=== PATIENT | female | born 1955 | race African-American/Black ===

== ENCOUNTER 2018-09-12 08:46 | Inpatient (IN) | payer OTHER ==
[2018-09-08 12:28] VITALS: BMI 31.0
[2018-09-12] MEDS ORDERED: SODIUM CHLORIDE 0.9% P/F 10 ML VIAL IJ ONE ×2 (10:17→10:42)
[2018-09-12] MEDS ORDERED: BUPIVACAINE LIPOSOME/PF (EXPAREL) 266 MG/20 ML VIAL ONE (10:17)
[2018-09-12] MEDS ORDERED: MIDAZOLAM HCL 2 MG/2 ML SINGLE DOSE VIAL ONE (10:17)
[2018-09-12] MEDS ORDERED: EPINEPHrine 1:1,000 1 MG/1 ML - 30ML VIAL (INJECTION) ONE (10:42)
[2018-09-12] MEDS ORDERED: BENZOIN/ALOE VERA/STORAX/TOLU 58 ML BOTTLE ONE (10:42)
[2018-09-12] MEDS ORDERED: KETOROLAC TROMETHAMINE 60 MG/2 ML VIAL ONE (10:42)
[2018-09-12] MEDS ORDERED: BUPIVACAINE HCL/PF 2.5 MG/ML - 30 ML VIAL IJ ONE (10:42)
[2018-09-12] MEDS ORDERED: MORPHINE SULFATE 10 MG/1 ML *VIAL ONE (11:18)
[2018-09-12] MEDS ORDERED: TRANEXAMIC ACID 1000 MG/10 ML VIAL IVPUSH ONE (11:42)
[2018-09-12] MEDS ORDERED: ROPIVICAINE 0.2%/MORPH PF/KETOROLAC - 51ML DISP.SYRINGE IA ONE (11:42)
[2018-09-12] MEDS ORDERED: CEFAZOLIN 2 GM in DEXTROSE 5%-WATER - 50 ML IVPB ONE (11:42)
[2018-09-12] MEDS ORDERED: VANCOMYCIN 1,000 MG in DEXTROSE 5%-WATER - 250 ML IVPB ONE (11:42)
--- NOTE | 2018-09-12 11:44 | PN ---
Progress Note (short form) - Note Progress Note: 63F s/p RIGHT total knee replacement POD #0. -Pain control: per anaesthesia team. -DVT PPx: -Chemical: ASA 81mg PO BID x 6 weeks. -Mechanical: BEN's, SCD's. -Incentive spirometry q15 min. -PT/OT/Rehab, OOB. -WBAT RLE; full range of motion right knee. -Post-op Ancef x 3 doses. -f/u post-op TOV: 8 hours max. -f/u AM labs. -f/u drain output. -Diet as tolerated. -Care per medical hospitalist: Dr. Saeed. -Discharge planning: f/u [facility] [place] Office 09/18/2018; call for appointment . -Will follow. Xaing Jefferson MD (Orthopaedic Surgery).
--- NOTE | 2018-09-12 11:46 | OP ---
Operative Note - Note: Operative Date: 09/12/18 Pre-Operative Diagnosis: Right knee DJD Operation: Right TKA Implants: [employer]. Femur - 4. Tibia - 4. Poly - 13mm, TS. Patella - 27mm, symmetric Post-Operative Diagnosis: Same as Pre-op Surgeon: Xiang Jefferson [employer] Site Monitor: Harris Jefferson Anesthesiologist/SUPERVISOR M[employer] HOUSE: Neal Mcadams Anesthesia: Spinal Specimens Removed: Bone, soft tissue Estimated Blood Loss (mls): 0 Drains & Tubes with Location: 1 x deep HemoVac Fluid Volume Replaced (mls): 900 (Crystalloid) Operative Report Dictated: Yes
[2018-09-12] MEDS ORDERED: ePHEDrine SULFATE 50 MG/1 ML AMPULE ONE (12:19)
[2018-09-12] MEDS ORDERED: PROPOFOL 20 ML ONE ×3 (12:19)
[2018-09-12] MEDS ORDERED: VANCOMYCIN 1,000 MG VIAL (RESTRICTED TO ID ONLY) ONE (12:27)
[2018-09-12] MEDS ORDERED: ONDANSETRON 4 MG/2 ML VIAL ONE (12:27)
[2018-09-12] MEDS ORDERED: TRANEXAMIC ACID 1000 MG/10 ML VIAL ONE (12:27)
[2018-09-12] MEDS ORDERED: ceFAZolin SODIUM 1 GM VIAL ONE (12:27)
[2018-09-12] MEDS ORDERED: DEXAMETHASONE SOD PHOSPHATE 4 MG/1 ML VIAL ONE (12:27)
[2018-09-12] MEDS ORDERED: MAGNESIUM HYDROX 2400MG/30ML ORAL SUSPENSION 30 ML CUP PO PRN (15:19)
[2018-09-12] MEDS ORDERED: ONDANSETRON 4 MG/2 ML VIAL IVPUSH PRN (15:19)
[2018-09-12] MEDS ORDERED: MAG HYDROX/AL HYDROX/SIMETH 30 ML UNIT-DOSE CUP PO PRN (15:19)
[2018-09-12] MEDS ORDERED: oxyCODONE HCL 5 MG TABLET PO PRN (15:25)
[2018-09-12] MEDS ORDERED: LACTATED RINGERS SOLUTION 1,000 ML IV SCH (15:30)
[2018-09-12] MEDS: ACETAMINOPHEN 325 MG TABLET (FP) PO SCH ×2 (16:10→21:37)
--- NOTE | 2018-09-12 17:28 | HP ---
Admitting History and Physical - Admission Chief Complaint: right knee pain. denies chest pain, palpitations, nausea, vomiting, diarrhea History Source: Patient Limitations to Obtaining History: No Limitations - Advance Directives Advance Directives: Yes: Health Care Proxy - Smoking History Smoking history: Former smoker Have you smoked in the past 12 months: No If you are a former smoker, when did you quit?: OVER 10 YEARS AGO - Alcohol/Substance Use Hx Alcohol Use: Yes (OCCASIONALLY) Home Medications - Allergies Allergies/Adverse Reactions: Allergies Allergy/AdvReac Type Severity Reaction Status Date / Time No Known Allergies Allergy Verified 09/08/18 12:16 - Home Medications Home Medications: Ambulatory Orders Acetaminophen W/ Codeine #3 [Tylenol # 3 -] 1 tab PO Q4H PRN 09/08/18 Methadone HCl 50 mg PO DAILY 09/08/18 Review of Systems - Review of Systems Constitutional: reports: No Symptoms Eyes: reports: No Symptoms HENT: reports: No Symptoms Neck: reports: No Symptoms Cardiovascular: reports: No Symptoms Respiratory: reports: No Symptoms Gastrointestinal: reports: No Symptoms Genitourinary: reports: No Symptoms Breasts: reports: No Symptoms Reported Musculoskeletal: reports: Joint Pain Integumentary: reports: No Symptoms Neurological: reports: No Symptoms Endocrine: reports: No Symptoms Hematology/Lymphatic: reports: No Symptoms Psychiatric: reports: No Symptoms Pain Intensity: 7 Physical Examination Vital Signs: Vital Signs Temperature 98.3 F 09/12/18 17:00 Pulse Rate 74 09/12/18 17:00 Respiratory Rate 16 09/12/18 17:00 Blood Pressure 112/71 09/12/18 17:00 O2 Sat by Pulse Oximetry (%) 97 09/12/18 17:00 Constitutional: Yes: Well Nourished Eyes: Yes: WNL HENT: Yes: WNL Neck: Yes: WNL Cardiovascular: Yes: WNL Respiratory: Yes: WNL Gastrointestinal: Yes: WNL Renal/: Yes: WNL Musculoskeletal: Yes: Joint Stiffness Extremities: Yes: WNL Edema: No Peripheral Pulses WNL: Yes Integumentary: Yes: WNL Wound/Incision: Yes: Clean/Dry, Well Approximated Neurological: Yes: WNL ...Motor Strength: WNL Psychiatric: Yes: WNL Assessment/Plan -63F s/p RIGHT total knee replacement POD #0. cont pain management. incentive spirometry. side effects of pain meds discussed. opioids started to avoid opioid induced constipation. -GI, DVT prophylaxis. on aspirin, BEN's, SCD's. -ID: empirically covered with Ancef bj-operatively. -oral diet -assessment and plan discussed with pt, medical staff and family at bedside. hopefully will DC within 48 hours.
[2018-09-12] MEDS: oxyCODONE HCL 5 MG TABLET PO PRN (19:43)
[2018-09-12] MEDS: ASPIRIN COATED 81 MG TABLET.EC PO SCH (21:33)
[2018-09-12] MEDS: CEFAZOLIN 1 GM/D5W 1 GM/50 ML BAG IVPB SCH (21:33)
[2018-09-12] MEDS: SENNOSIDES/DOCUSATE COMBO (SENNA PLUS) TABLET (UD) PO SCH (21:33)
[2018-09-12] MEDS: oxyCODONE HCL 10 MG SUSTAINED ACTING TABLET PO SCH (21:33)
[2018-09-13] MEDS: CEFAZOLIN 1 GM/D5W 1 GM/50 ML BAG IVPB SCH (01:07)
[2018-09-13] MEDS: ACETAMINOPHEN 325 MG TABLET (FP) PO SCH ×4 (03:12→21:13)
[2018-09-13] MEDS: oxyCODONE HCL 5 MG TABLET PO PRN ×2 (06:26→20:00)
[2018-09-13 08:28] LABS: HEMATOCRIT 36.1 % (32.4-45.2); MCHC 33.3 g/dl (32.0-36.0); MEAN CELL VOLUME 84.2 fl (80-96); MEAN PLT VOLUME 8.8 fl (7.5-11.1); PLATELET COUNT 189 K/MM3 (134-434); RBC 4.29 M/mm3 (3.60-5.2); RDW 14.3 % (11.6-15.6); WHITE BLOOD COUNT 12.7 K/mm3 (4.0-10.8)
[2018-09-13 08:38] LABS: CREATININE 0.6 mg/dl (0.55-1.3); POTASSIUM 4.5 mmol/L (3.5-5.1)
[2018-09-13] MEDS ORDERED: METHADONE HCL 10 MG TABLET PO SCH (10:00)
[2018-09-13] MEDS: SENNOSIDES/DOCUSATE COMBO (SENNA PLUS) TABLET (UD) PO SCH ×2 (10:16→21:13)
[2018-09-13] MEDS: ASPIRIN COATED 81 MG TABLET.EC PO SCH ×2 (10:16→21:13)
[2018-09-13] MEDS: PANTOPRAZOLE 40 MG TABLET (FP) PO SCH (10:16)
[2018-09-13] MEDS: oxyCODONE HCL 10 MG SUSTAINED ACTING TABLET PO SCH ×2 (10:16→21:13)
--- NOTE | 2018-09-13 10:35 | OP ---
DATE OF OPERATION: DATE OF DICTATION: 09/12/2018 SURGEON: Xiang Jefferson MD FOOTWEAR FACTORY WORKER: Harris Jefferson MD, MADAI Flowers PREOPERATIVE DIAGNOSIS: Tricompartmental osteoarthritis, right knee. POSTOPERATIVE DIAGNOSIS: Tricompartmental osteoarthritis, right knee. OPERATION PERFORMED: Right posterior stabilized total knee arthroplasty ([facility] [facility]). ANESTHESIA: Peripheral block, conscious sedation, spinal anesthesia. OPERATION DETAILS: Patient correctly identified. Brought to the operating room. The right lower extremity was prepped and draped in the routine manner with Betadine scrub solution, wiped off with alcohol, and DuraPrep applied. Time-out was called. Imaging was available for intraoperative evaluation. With the patient in supine position after appropriate free draping and appropriate cleansing of the skin with Betadine solution and DuraPrep, the skin was opened. Midline incision was utilized. The incision was from 3 fingers above the superior pole of the patella to just below the tibial tubercle. The quadriceps mechanism and fascia were identified. The of the vastus medialis was lifted off the muscle with sharp dissection, and the entire muscle was freed off the intramuscular septum and linea aspera by dissecting right around the medial side freeing the muscle directly off the intramuscular septum and bone itself. This gave easy access to the subvastus plane. A blunt Holmann was placed in this area. The suprapatellar pouch was readily identified and transected using the Capellan scissors. The entire supracondylar soft tissue anterior mantle was removed using Bovie. The knee was flexed, which revealed the presence of severe tricompartmental osteoarthritis. Using the appropriate jig systems of [employer], the tibia was cut to neutral to receive a size 4 tibial tray. This was appropriately measured. The femur was measured, also sized appropriately. Deficient femoral condyle reinsured that the jig was as accurately positioned as possible using Morrison alignment of the trochlear groove to seek the actual femoral compartment appropriately. This enabled the appropriate bone cuts to be made, and the femoral components seated well. The knee was in fixed varus and fixed flexion, so the actual femoral cut was 4 degrees of valgus. A 10-mm bony resection, that is +2 mm proximalization of the joint line, performed. The flexion and extension gaps were even at 13 mm. This because of the actual stretching of the lateral collateral ligament. Once this had been completed and the patella cut was made, which was from patella ligament to quadriceps tendon, free hand cut and the appropriate jig applied for the 3 lug holes, which were drilled appropriately. Once all bony cuts had been completed, the bone bed itself was thoroughly lavaged with saline and pulse lavaged. The cementing was all in 1 stage. The exact sized components as outlined before, namely a size 4 tibial, size 4 femur, 3-cm patellar button. Tracking and patella alignment was excellent. Limb alignment was restored to neutral, that is the mechanical axis, once again. The knee was placed through a range of motion from flexion, extension. Once all extraneous cement had been removed and the tissues were thoroughly lavaged, the wounds were closed with fascia to the retinacular tissue to hold the vastus medialis, subcutaneous 1 and 2-0 Vicryl, skin 3-0 Monocryl with Steri-Strips. Drainage one inch to the subvastus bed appropriately. No complications. Operation went extremely well. MD THELMA Vogel/[id number]
[2018-09-13] MEDS: METHADONE HCL 10 MG TABLET PO SCH (11:22)
--- NOTE | 2018-09-13 12:33 | PN ---
Progress Note (short form) - Note Progress Note: 63F s/p RIGHT total knee replacement POD #1. Pain well controlled. No acute events overnight. Pt. denies overnight history of headaches, chest pain, shortness of breath, nausea, vomiting, chills, & sweats. (+) Voiding; (+) Flatus; (-) BM. Tolerating diet. (+) Walked in hallway. All labs and vitals reviewed. PE: AAO x 3, NAD. R-Knee: Dressing C/D/I. Drain intact, in place; output: 440cc/shift. NVI distally. 63F s/p RIGHT total knee replacement POD #1. -Pain control: per anaesthesia team. -DVT PPx: -Chemical: ASA 81mg PO BID x 6 weeks. -Mechanical: BEN's, SCD's. -Incentive spirometry q15 min. -PT/OT/Rehab, OOB. -WBAT RLE; full range of motion right knee. -Post-op Ancef x 3 doses. -f/u AM labs. -f/u drain output. -Diet as tolerated. -Care per medical hospitalist: Dr. Saeed. -Discharge planning: f/u [facility] [place] Office 09/18/2018; call for appointment . -Will follow. Xiang Jefferson MD (Orthopaedic Surgery).
--- NOTE | 2018-09-13 17:02 | PN ---
Progress Note, Physician Chief Complaint: 63F s/p RIGHT total knee replacement POD #1. - Current Medication List Current Medications: Active Medications Acetaminophen (Tylenol -) 650 mg PO Q6H [facility] Stop: 09/15/18 15:29 Last Admin: 09/13/18 10:16 Dose: 650 mg Al Hydroxide/Mg Hydroxide (Mylanta Oral Suspension -) 30 ml PO Q4H PRN PRN Reason: DYSPEPSIA Aspirin (Ecotrin -) 81 mg PO BID [facility] Last Admin: 09/13/18 10:16 Dose: 81 mg Fentanyl (Sublimaze Injection -) 50 mcg IVPUSH [id number] PRN PRN Reason: PAIN-PACU ORDER X 4 DOSES ONLY Magnesium Hydroxide (Milk Of Magnesia -) 30 ml PO PRN PRN PRN Reason: CONSTIPATION Methadone HCl (Dolophine -) 50 mg PO DAILY [facility] Stop: 09/14/18 10:01 Last Admin: 09/13/18 11:22 Dose: 50 mg Methadone HCl (Dolophine -) 50 mg PO DAILY [facility] Ondansetron HCl (Zofran Injection) 4 mg IVPUSH Q6H PRN PRN Reason: NAUSEA Oxycodone HCl (Roxicodone -) 5 mg PO Q3H PRN PRN Reason: PAIN LEVEL 1-5 Oxycodone HCl (Roxicodone -) 10 mg PO Q3H PRN PRN Reason: PAIN LEVEL 6-10 Last Admin: 09/13/18 06:26 Dose: 10 mg Oxycodone HCl (Oxycontin -) 10 mg PO BID [facility] Stop: 09/15/18 15:25 Last Admin: 09/13/18 10:16 Dose: 10 mg Pantoprazole Sodium (Protonix -) 40 mg PO DAILY [facility] Last Admin: 09/13/18 10:16 Dose: 40 mg Senna/Docusate Sodium (Pericolace -) 2 tablet PO BID [facility] Last Admin: 09/13/18 10:16 Dose: 2 tablet - Objective Vital Signs: Vital Signs Temperature 97.7 F 09/13/18 13:00 Pulse Rate 62 09/13/18 13:00 Respiratory Rate 18 09/13/18 13:00 Blood Pressure 96/66 09/13/18 13:00 O2 Sat by Pulse Oximetry (%) 95 09/13/18 13:00 Constitutional: Yes: Well Nourished, No Distress Eyes: Yes: WNL HENT: Yes: WNL Neck: Yes: WNL Cardiovascular: Yes: WNL Respiratory: Yes: WNL Gastrointestinal: Yes: WNL Genitourinary: Yes: WNL Musculoskeletal: Yes: Joint Stiffness Extremities: Yes: WNL Edema: No Peripheral Pulses WNL: Yes Integumentary: Yes: WNL Wound/Incision: Yes: Clean/Dry, Well Approximated, Dressing Dry and Intact Neurological: Yes: WNL ...Motor Strength: WNL Psychiatric: Yes: WNL Labs: CBC, BMP 09/13/18 07:37 09/13/18 07:37 Assessment/Plan -63F s/p RIGHT total knee replacement POD #1. cont pain management. incentive spirometry. side effects of pain meds discussed. opioids started to avoid opioid induced constipation. -GI, DVT prophylaxis. on aspirin, BEN's, SCD's. -ID: empirically covered with Ancef bj-operatively. -I spoke with her methadone clinic and conformed she takes 50 mg a day which I ordered. -oral diet -assessment and plan discussed with pt, medical staff and family at bedside. hopefully will DC on Saturday if cleared by Ortho.
[2018-09-14] MEDS: ACETAMINOPHEN 325 MG TABLET (FP) PO SCH ×4 (05:00→21:14)
[2018-09-14] MEDS: oxyCODONE HCL 5 MG TABLET PO PRN ×2 (06:29→21:14)
[2018-09-14 08:51] LABS: HEMATOCRIT 36.9 % (32.4-45.2); HEMOGLOBIN 11.9 GM/dl (10.7-15.3); MCH 27.4 pg (25.7-33.7); MCHC 32.1 g/dl (32.0-36.0); MEAN CELL VOLUME 85.4 fl (80-96); MEAN PLT VOLUME 9.5 fl (7.5-11.1); PLATELET COUNT 196 K/MM3 (134-434); RBC 4.33 M/mm3 (3.60-5.2); WHITE BLOOD COUNT 9.8 K/mm3 (4.0-10.8)
[2018-09-14] MEDS: SENNOSIDES/DOCUSATE COMBO (SENNA PLUS) TABLET (UD) PO SCH ×2 (09:29→21:14)
[2018-09-14] MEDS: ASPIRIN COATED 81 MG TABLET.EC PO SCH ×2 (09:29→21:14)
[2018-09-14] MEDS: PANTOPRAZOLE 40 MG TABLET (FP) PO SCH (09:30)
[2018-09-14] MEDS: oxyCODONE HCL 10 MG SUSTAINED ACTING TABLET PO SCH ×2 (09:34→21:14)
[2018-09-14] MEDS: METHADONE HCL 10 MG TABLET PO SCH (09:35)
--- NOTE | 2018-09-14 11:03 | PN ---
Progress Note, Physician Chief Complaint: 63F s/p RIGHT total knee replacement POD #1. - Current Medication List Current Medications: Active Medications Acetaminophen (Tylenol -) 650 mg PO Q6H [facility] Stop: 09/15/18 15:29 Last Admin: 09/14/18 09:29 Dose: 650 mg Al Hydroxide/Mg Hydroxide (Mylanta Oral Suspension -) 30 ml PO Q4H PRN PRN Reason: DYSPEPSIA Aspirin (Ecotrin -) 81 mg PO BID [facility] Last Admin: 09/14/18 09:29 Dose: 81 mg Fentanyl (Sublimaze Injection -) 50 mcg IVPUSH [id number] PRN PRN Reason: PAIN-PACU ORDER X 4 DOSES ONLY Magnesium Hydroxide (Milk Of Magnesia -) 30 ml PO PRN PRN PRN Reason: CONSTIPATION Methadone HCl (Dolophine -) 50 mg PO DAILY [facility] Ondansetron HCl (Zofran Injection) 4 mg IVPUSH Q6H PRN PRN Reason: NAUSEA Oxycodone HCl (Roxicodone -) 5 mg PO Q3H PRN PRN Reason: PAIN LEVEL 1-5 Oxycodone HCl (Roxicodone -) 10 mg PO Q3H PRN PRN Reason: PAIN LEVEL 6-10 Last Admin: 09/14/18 06:29 Dose: 10 mg Oxycodone HCl (Oxycontin -) 10 mg PO BID [facility] Stop: 09/15/18 15:25 Last Admin: 09/14/18 09:34 Dose: 10 mg Pantoprazole Sodium (Protonix -) 40 mg PO DAILY [facility] Last Admin: 09/14/18 09:30 Dose: 40 mg Senna/Docusate Sodium (Pericolace -) 2 tablet PO BID [facility] Last Admin: 09/14/18 09:29 Dose: 2 tablet - Objective Vital Signs: Vital Signs Temperature 98.0 F 09/14/18 09:00 Pulse Rate 78 09/14/18 09:00 Respiratory Rate 18 09/14/18 09:00 Blood Pressure 112/58 L 09/14/18 09:00 O2 Sat by Pulse Oximetry (%) 95 09/14/18 06:46 Constitutional: Yes: Well Nourished, No Distress, Calm Eyes: Yes: WNL HENT: Yes: WNL Neck: Yes: WNL Cardiovascular: Yes: WNL Respiratory: Yes: WNL Gastrointestinal: Yes: WNL Genitourinary: Yes: WNL Musculoskeletal: Yes: Joint Stiffness Extremities: Yes: WNL Edema: No Peripheral Pulses WNL: Yes Integumentary: Yes: WNL Wound/Incision: Yes: Clean/Dry, Well Approximated Neurological: Yes: WNL ...Motor Strength: WNL Psychiatric: Yes: WNL Labs: CBC, BMP 09/14/18 08:00 09/13/18 07:37 Assessment/Plan -63F s/p RIGHT total knee replacement POD #2. cont pain management. incentive spirometry. side effects of pain meds discussed. opioids started to avoid opioid induced constipation. -GI, DVT prophylaxis. on aspirin, BEN's, SCD's. -ID: empirically covered with Ancef bj-operatively. -I spoke with her methadone clinic and conformed she takes 50 mg a day which I ordered. -oral diet -PT/OT/OOB as tolerated -assessment and plan discussed with pt, medical staff and family at bedside. hopefully will DC home by tomorrow if cleared by Ortho.
--- NOTE | 2018-09-14 12:29 | PN ---
Progress Note (short form) - Note Progress Note: POD#2 Doing well C/O mild incisional pain Feels generally well Vitals all stable MSkeletal Bandage dry No NVD Drainage 150 over 8 hrs PLAN Continue as before Will D/C drain and D/C home tomorrow.
[2018-09-15] MEDS: ACETAMINOPHEN 325 MG TABLET (FP) PO SCH ×2 (05:21→09:05)
[2018-09-15] MEDS: oxyCODONE HCL 5 MG TABLET PO PRN ×2 (06:26→09:26)
[2018-09-15 06:39] VITALS: BP 110/62; PULSE 67; TEMP 98.3
[2018-09-15] MEDS: oxyCODONE HCL 10 MG SUSTAINED ACTING TABLET PO SCH (09:04)
[2018-09-15] MEDS: PANTOPRAZOLE 40 MG TABLET (FP) PO SCH (09:04)
[2018-09-15] MEDS: SENNOSIDES/DOCUSATE COMBO (SENNA PLUS) TABLET (UD) PO SCH (09:06)
[2018-09-15] MEDS: ASPIRIN COATED 81 MG TABLET.EC PO SCH (09:06)
[2018-09-15] MEDS ORDERED: METHADONE HCL 10 MG TABLET PO SCH (10:00)
--- NOTE | 2018-09-15 10:49 | DS ---
Physical Examination Vital Signs: Vital Signs Temperature 98.3 F 09/15/18 05:00 Pulse Rate 67 09/15/18 05:00 Respiratory Rate 19 09/15/18 05:00 Blood Pressure 110/62 09/15/18 05:00 O2 Sat by Pulse Oximetry (%) 96 09/15/18 09:00 Labs: CBC, BMP 09/14/18 08:00 09/13/18 07:37 Discharge Summary Reason For Visit: BILATERAL OSTEOARTHRITIS OF KNEES Condition: Good - Instructions Diet, Activity, Other Instructions: Dr. Jefferson Discharge Instructions for Knee Replacement Post Operative Instructions Physical activity Physical Therapist will come to your home for the first 5 days. You will be set up with outpatient PT at your first post-operative visit. Use assistive devices for ambulation at all times. Weight bearing as tolerated on your surgical side. Do not put pillow under knee. May put pillow under heel. Wound care Leave your surgical dressing in place. Do not change the dressing until seen by your surgeon in the office. No baths or showers. Do not submerge your incision. Do not apply any ointments or lotions to your incision. Please call the office if your dressing is soiled/dirty or is falling off. Apply Graduated Compression Stockings (TEDS) to both lower extremities - remove daily for hygiene ONLY. Diet There are no dietary restrictions. Eat healthy, high-fiber foods. Drink 6 to 8 glasses of liquid each day. This will assist in keeping your bowels are regular. Pain management Any pain prescription medication ordered should be taken as prescribed for moderate to severe pain. Do not take additional Tylenol while taking Percocet. Take Aspirin 81 mg two times a day for a total of 6 weeks to prevent blood clots. Call Dr. Jefferson for any of the following: Severe pain not relieved by medication Fever of 101 or higher Excessive bleeding or drainage on dressing Inability to urinate If you experience chest pain or shortness of breath, please seek emergency care immediately. Please call the office at to confirm your post-op appointment for the week following surgery. Disposition: HOME - Home Medications Comprehensive Discharge Medication List: Ambulatory Orders Acetaminophen W/ Codeine #3 [Tylenol # 3 -] 1 tab PO Q4H PRN 09/08/18 Methadone HCl 50 mg PO DAILY 09/08/18
--- NOTE | 2018-09-17 16:14 | PATH ---
Surgical Pathology Report Patient Name: SUNNY PEÑA Med. Rec. #: [id number] /Age/Gender: 1955 (Age: 63) / F Account: [id number] Location: [facility] Taken: 09/12/2018 Received: 09/12/2018 Reported: 09/17/2018 Physicians: Xiang Jefferson M.D. Specimen(s) Received BONE RIGHT KNEE Clinical History Bilateral osteoarthritis of knees Final Diagnosis BONE, RIGHT KNEE, TOTAL KNEE REPLACEMENT: DEGENERATIVE JOINT DISEASE. Electronically Signed Paola Araiza M.D. Gross Description Received in formalin labeled "bone right knee," is an 11.0 x 10.5 x 1.5 cm aggregate of multiple portions of bone and soft tissue. The tibial plateau measures 7.4 x 5.5 x 1.7 cm. There are multiple areas of eburnation present, measuring up to 1.9 cm in greatest dimension. The remaining articular surfaces are macdonald-yellow and focally granular. The underlying trabecular bone is yellow and hard. Property Management Specialist sections are submitted in one cassette, following decalcification. /09/16/2018 [facility]09/16/2018
== END 2018-09-15 11:35 | disposition home or self-care (01) | DRG 470 ==
LOC: FM/S 08:46
PROVIDERS: ADMIT Orthopaedic Surgery Orthopaedic Surgery of the Spine; ATTEND Internal Medicine
PROC: 0SRC0J9 Replacement of Right Knee Joint with Synthetic Substitute, Cemented, Open Approach (ICD-10-PCS; principal; 2018-09-12 12:47)
DX: M17.11 Unilateral primary osteoarthritis, right knee (principal); F11.20 Opioid dependence, uncomplicated; Z87.891 Personal history of nicotine dependence; G56.00 Carpal tunnel syndrome, unspecified upper limb; Z86.19 Personal history of other infectious and parasitic diseases; M19.90 Unspecified osteoarthritis, unspecified site
CPT/HCPCS: 36415; 73560-TC-RT-FY; 80048; 85027; 88304-TC; 88311-TC; 94760; 97116-GP; 97162-GP